=== PATIENT | female | born 1970 | race Caucasian/White ===

== ENCOUNTER 2021-05-06 08:39 | Outpatient (CLI) | payer OTHER | END 2021-05-06 08:40 | disposition short-term general hospital (02) | LOC: EMS 08:39 | DX: M54.5 Low back pain (principal); G89.29 Other chronic pain | CPT/HCPCS: A0425; A0427 ==

== ENCOUNTER 2024-01-06 15:43 | Outpatient (CLI) | payer OTHER | END 2024-01-06 15:44 | disposition EMS.NT | LOC: EMS 15:43 | DX: Z03.89 Encounter for observation for other suspected diseases and conditions ruled out (principal) ==